=== PATIENT | female | born 1980 | race Caucasian/White ===

== ENCOUNTER 2022-11-18 11:32 | Outpatient (CLI) | payer OTHER, SELFPAY ==
[2022-11-18 11:58] LABS: Hemoglobin 14.1 g/dL (12.0-15.0); Mean Corpuscular HGB Conc 32.8 g/dl (32-36); Mean Corpuscular Hemoglobin 29.2 pg (26-34); Mean Platelet Volume 9.1 fl (7.4-10.4); Platelet Count Result 265 k/mm3 (150-375); Red Blood Count 4.83 M/mm3 (4.2-5.4); Red Cell Distribution Width 11.9 % (11.5-14.5); White Blood Count 5.8 K/mm3 (4.5-10.0)
[2022-11-18 12:13] LABS: Alanine Aminotransferase 21 U/L (6-35); Albumin Level 4.4 g/dL (3.5-5.1); Alkaline Phosphatase 62 U/L (38-126); Anion Gap 7 mmol/L (8-16); Aspartate Amino Transferase 26 U/L (14-36); Bilirubin,Total 0.4 mg/dL (0.2-1.3); Blood Urea Nitrogen 16 mg/dL (7-17); CRP 0.7 mg/dL (<1.0); Carbon Dioxide 28 mmol/L (22-30); Chloride 103 mmol/L (98-107); Estimated Glomerular Filt Rate > 60; Glucose 115 mg/dL (65-110); Lipase 376 U/L (23-300); Potassium 4.2 mmol/L (3.4-5.0); Sodium 138 mmol/L (137-145)
[2022-11-18 12:45] LABS: Hepatitis B Surface Antigen Negative (Negative)
[2022-11-18 12:50] LABS: HIV 1/2 Ab P24 Ag Result Negative (Negative)
[2022-11-18 12:51] LABS: HAV RESULT Negative (Negative); Hepatitis B Core IgM Result Negative (Negative)
[2022-11-18 13:02] LABS: Hepatitis C Virus Antibody Negative (Negative)
[2022-11-18 13:24] LABS: Erythrocyte Sedimentation Rate 12 mm/hr (0-20)
[2022-11-23 01:35] LABS: Tissue Transglutaminase IgA Ab <1.0 U/mL (<15.0); Tissue Transglutaminase IgG Ab <1.0 U/mL (<15.0)
== END 2022-11-18 11:33 | disposition home or self-care (01) ==
PROVIDERS: PCP Internal Medicine; Visit Provider Nurse Practitioner
DX: R93.3 Abnormal findings on diagnostic imaging of other parts of digestive tract (principal); R74.8 Abnormal levels of other serum enzymes
CPT/HCPCS: 36415; 80053; 80074; 83690; 85027; 85652; 86140; 86364; 86703; G0432

== ENCOUNTER 2022-12-07 09:47 | Outpatient (CLI) | payer OTHER, SELFPAY ==
--- NOTE | ~2022-12-07 | US_ITS ---
EXAMINATION: US abdomen limited DATE: 12/07/2022 10:44 INDICATION: hx of biliary dilation-f/u TECHNIQUE: Multiple grayscale and Doppler ultrasound images of limited portions of the abdomen were o btained. COMPARISON: CT abdomen pelvis 01/07/2012. FINDINGS: The visualized portions of the pancreas are normal. The liver is normal with normal echogen icity and echotexture. No surface nodularity. Normal hepatopetal flow in the main portal vein. Status post cholecystectomy. The common bile duct measures 6 mm. There was no sonographic Johnson sign. IMPRESSION: Status post [facility] x-ray. Otherwise normal limited abdominal ultrasound findings. Reviewed, dictated and finalized at location K. IMPRESSION: Status post [facility] x-ray. Otherwise normal limited abdominal ultrasound findings .
== END 2022-12-07 09:48 | disposition home or self-care (01) ==
LOC: ANHIMG 09:50
PROVIDERS: PCP Internal Medicine; Visit Provider Nurse Practitioner
DX: R19.8 Other specified symptoms and signs involving the digestive system and abdomen (principal)
CPT/HCPCS: 76705

== ENCOUNTER 2023-10-10 15:40 | Outpatient (CLI) | payer OTHER, SELFPAY ==
[2023-10-10 16:02] LABS: Hematocrit 40.9 % (37.0-47.0); Hemoglobin 13.8 g/dL (12.0-15.0); Mean Corpuscular HGB Conc 33.7 g/dl (32-36); Mean Corpuscular Hemoglobin 30.1 pg (26-34); Mean Corpuscular Volume 89.1 fl (80-100); Mean Platelet Volume 8.7 fl (7.4-10.4); Platelet Count Result 331 k/mm3 (150-375); Red Blood Count 4.59 M/mm3 (4.2-5.4); Red Cell Distribution Width 11.9 % (11.5-14.5); White Blood Count 9.6 K/mm3 (4.5-10.0)
[2023-10-10 16:17] LABS: Alanine Aminotransferase 22 U/L (6-35); Albumin Level 4.5 g/dL (3.5-5.1); Alkaline Phosphatase 70 U/L (38-126); Anion Gap 11 mmol/L (4-12); Aspartate Amino Transferase 29 U/L (14-36); Bilirubin,Total 0.2 mg/dL (0.2-1.3); Blood Urea Nitrogen 16 mg/dL (7-17); Carbon Dioxide 25 mmol/L (22-30); Chloride 102 mmol/L (98-107); Estimated Glomerular Filt Rate > 60; Glucose 90 mg/dL (65-110); Lipase 433 U/L (23-300); Potassium 3.9 mmol/L (3.4-5.0); Sodium 138 mmol/L (137-145)
== END 2023-10-10 15:41 | disposition home or self-care (01) ==
LOC: ANHLAB 15:42
PROVIDERS: Visit Provider Nurse Practitioner
DX: R74.8 Abnormal levels of other serum enzymes (principal); K58.9 Irritable bowel syndrome, unspecified
CPT/HCPCS: 36415; 80053; 83690; 84443; 85027

== ENCOUNTER 2024-05-20 00:10 | Day surgery (SDC) | payer OTHER, SELFPAY ==
[2024-05-10 14:50] VITALS: BMI 28.3
--- OUTSIDE RECORDS SUMMARY | 2024-05-20 00:14 | XMS_ITS | Referral Summary ---
Author Organization [facility] [address] Address [address] [place] [address] Care Team Providers Care Specifications Checker Name Role Phone Kahlil George MD Primary Care Provider Allergies Active Allergy Reactions Criticality Noted Date Comments Fentanyl Dizziness,Unknown Low 09/20/2013 MAKE PT VERY DROWSY AND FELL PER PT Penicillins Rash,Unknown Medium 11/20/2013 Rash Tramadol Dizziness,Unknown Low 07/20/2017 Medications calcium carbonate (TUMS) 500 mg (200 mg elemental) chewable tablet Take 1 tablet by mouth daily Active cholecalciferol (VITAMIN D-3) 25 mcg (1,000 unit) tablet Take 1 tablet by mouth daily Active cyanocobalamin (Vitamin B-12) 2,000 mcg tablet Take 1 tablet by mouth daily Active collagenase (SANTYL) ointment Apply topically daily Active hydrOXYzine (VISTARIL) 25 mg capsule Take 25 mg by mouth daily as needed Active lamoTRIgine (LaMICtal) 100 mg tablet Take 100 mg by mouth 2 (two) times a day 2 Active norethindrone ethinyl estradiol (MICROGESTIN 1.530) 1.5-30 mg-mcg tablet per tablet Take 1 tablet by mouth daily Active polyethylene glycol (Golytely) 236-22.74-6.74 -5.86 gram solution 4 liters to be taken by mouth as directed for bowel prep. 2 Active sertraline (ZOLOFT) 100 mg tablet Take 100 mg by mouth 2 (two) times a day 2 Active suvorexant (Belsomra) 10 mg tablet Take 10 mg by mouth nightly Active traZODone (DESYREL) 100 mg tablet TAKE 2 TABLETS BY MOUTH AT NIGHT 2 Active ziprasidone (GEODON) 20 mg capsule Take 40 mg by mouth daily 1 Active Active Problems Problem Noted Date Diagnosed Date Conductive hearing loss of l eft ear with unrestricted hearing of right ear 08/27/2021 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 Headache 03/25/2013 Overview (06/10/2016): Medication overuse headache Migraine 03/25/2013 Overview (06/10/2016): Migraine headache Obstructive sleep apnea syndrome 02/18/2013 Overview (06/09/2016): Obstructive sleep apnea syndrome Idiopathic hypersomnia without long sleep time 1 04/21/2012 Overview (06/09/2016): 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, insomnia, or sle eplessness associated with conditioned arousal 02/18/2013 Overview (06/09/2016): Paradoxical insomnia Diffuse pain 11/27/2012 Overview (06/09/2016): Diffuse pain Insomnia 11/27/2012 Overview (06/09/2016): Insomnia Depression 11/27/2012 Overview (06/09/2016): Depression Social History Tobacco Use Types Packs/Day Years Used Date Smoking Tobacco: Never Smokeless Tobacco: Never Alcohol Use Standard Drinks/Week Comments No 0 (1 standard drink = 0.6 oz pur e alcohol) Comments Unknown Sex and Gender Information Value Date Recorded Sex Assigned at Not on file Legal Sex Female 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 Care Teams Specifications Checker Relationship Specialty [place] [address] [place] [address] [facility] - General 09/10/13
--- OUTSIDE RECORDS SUMMARY | 2024-05-20 00:14 | XMS_ITS ---
Author Organization [facility] Address [address] [place] [address] Care Team Providers Care Instructional Paraprofessional Name Role Phone Jamaal Peters Primary Care Provider REASON FOR VISIT appt/refills Medications Medication SIG (Take, Route, Frequency, Duration) Notes Start Date End Date Status buPROPion HCl ER (XL) 150 MG Take 1 tablet by mouth once daily for 30 days Active lamoTRIgine 25 MG TAKE 1 TABLET BY HUAN TH TWICE DAILY WITH 100MG TAB FOR A TOTAL OF 125MG TWICE DAILY for 30 days Active Ziprasidone HCl 80 MG TAKE 2 CAPSULES BY MOUTH AT NIGHT for 30 days Active LaMICtal 100 MG 1 tablet Orally twic e a day for 30 days Active traZODone HCl 150 MG 1 tablet at bedtime Orally at night for 30 days Active Sertraline HCl 100 MG 1 tablet Orally tw ice a day for 30 days Active Social History Sex Assigned At : Social History Observation Description Sex Assigned At Female Encounters Encounter Location Date Provider Diagnosis [address] [address] 03/26/2024 Jamaal Peters Bipolar disorder F31.9 Assessments Encounter Date Diagnosis (ICD Code) Assessment Notes Treatment Notes Treatment Clinical Notes Section Notes 03/26/2024 Bipolar disorder (ICD-10 - F31.9) Plan Of Treatment Medication Medication Name Sig Start Date Stop Date Notes buPROPion HCl ER (XL) 150 MG Take 1 tabl et by mouth once daily for 30 days lamoTRIgine 25 MG TAKE 1 TABLET BY HUAN TH TWICE DAILY WITH 100MG TAB FOR A TOTAL OF 125MG TWICE DAILY for 30 days Ziprasidone HCl 80 MG TAKE 2 CAPSULES BY MOUTH AT NIGHT for 30 days LaMICtal 100 MG 1 tablet Orally twic e a day for 30 days traZODone HCl 150 MG 1 tablet at bedtime Orally at night for 30 days Sertraline HCl 100 MG 1 tablet Orally tw ice a day for 30 days Progress Notes * Christopher SANDHUJoseB:1980 (43 yo F)Acc No.[id number]:03/26/2024 Patient: Aliza JACOBSON :1980 A ge:43 Y S ex:Female Address:[address] [place] [address], [address], [place], [address] * Refills Refill Sertraline HCl Tablet, 100 MG, Orally, 60 Tablet, 1 tablet, twice a day, 30 days, Refills=0 Refill traZODone HCl Tablet, 150 MG, Orally, 30, 1 tablet at bedtime, at night, 30 days, Refills=0 Refill LaMICtal Tablet, 100 MG, Orally, 60, 1 tablet, twice a day, 30 days, Refills=0 Refill Ziprasidone HCl Capsule, 80 MG, 60, TAKE 2 CAPSULES BY MOUTH AT NIGHT, 30 days, Refills=0 Refill lamoTRIgine Tablet, 25 MG, 60, TAKE 1 TABLET BY MOUTH TWICE DAILY WITH 100MG TAB FOR A TOTAL OF 125MG TWICE DAILY, 30 days, Refills=0 Refill buPROPion HCl ER (XL) Tablet Extended Release 24 Hour, 150 MG, 30 Tablet, Take 1 tablet by mouth once daily, 30 days, Refills=0 * true * Date: Generated for Janeth hayden/Ruchi/Lena on: 0 05/20/2024 12:13 AM CDT
--- OUTSIDE RECORDS SUMMARY | 2024-05-20 00:14 | XMS_ITS ---
Author Organization [facility] Address [address] [place] [address] Care Team Providers Care Quarter Section Ironer Name Role Phone Jamaal Peters Primary Care Provider REASON FOR VISIT Refill Social History Sex Assigned At : Social History Observation Description Sex Assigned At Female Encounters Encounter Location Date Provider Diagnosis [address] [place] [address] 03/26/2024 Jamaal Peters Plan Of Treatment No Information Progress Notes * PHOEBEChristopherJoseB:1980 (43 yo F)Acc No.[id number]:03/26/2024 Patient: Aliza JACOBSON :1980 A ge:43 Y S ex:Female Address:[address], [address], [place], [address] * true * Date: Generated for Johnnyi ng/Fajessikag/eTransmitting on: 0 05/20/2024 12:14 AM CDT
--- OUTSIDE RECORDS SUMMARY | 2024-05-20 00:14 | XMS_ITS | Encounter Summary ---
Author Organization [facility] Address [address] [place] [address] Care Team Providers Care School Office Manager Name Role Phone Janet Alejandra APRN Primary Care Provider [phone] Encounter Details Date Type Department Care Team (Late st Contact Info) Description 10/25/2022 [employer] Security Message Enc [facility] Family & Internal Medicine [facility] [address] [place] [address] Janet Alejandra APRN [address] [facility] [address] [place] [address] Test results Social History Tobacco Use Types Packs/Day Years Used Date Smoking Tobacco: Never Smokeless Tobacco: Never Alcohol Use Standard Drinks/Week Comments Yes 0 (1 standard drink = 0.6 oz pure alcohol) Pt states 1/wine every 3 months or so Humiliation, Afraid, Rape, and Kick questionnair e Answer Date Recorded Within the last year, have y ou been afraid of your partner or ex-partner? No 07/28/2022 Within the last year, have y ou been humiliated or emotionally abused in other ways by your partner or ex-partner? No Within the last year, have y ou been kicked, hit, slapped, or otherwise physically hurt by your partner or ex-partner? No 07/28/2022 Within the last year, have y ou been raped or forced to have any kind of sexual activity by your partner or ex-partner? No 07/28/2022 Overall Financial Resource Strain (CARDIA) Answe r Date Recorded How hard is it for you to pa y for the very basics like food, housing, medical care, and heating? Not very hard 07/28/2022 PHQ-2 Answer Date Recorded Patient Health Questionnaire-2 Score 0 10/17/2022 Hunger Vital Sign Answer Date Recorded Within the past 12 months, y ou worried that your food would run out before you got the money to buy more. Never true 07/29/19 23 Within the past 12 months, t he food you bought just didn't last and you didn't have money to get more. Never true 07/28/2022 PRAPARE - Transportation Answer Date Re corded In the past 12 months, has l ack of transportation kept you from medical appointments or from getting medications? No 07/05 In the past 12 months, has l ack of transportation kept you from meetings, work, or from getting things needed for daily living? No 07/28/2022 Housing Stability Vital Sign Answer Jovi e Recorded In the last 12 months, was t here a time when you were not able to pay the mortgage or rent on time? No 07/28/2022 In the last 12 months, how many places have you lived? 1 07/28/2022 In the last 12 months, was t here a time when you did not have a steady place to sleep or slept in a assisted (including now)? 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 Answer Date of Assessment Author Status No 07/28/2022 5:52 PM CDT Falbe, Meg E, RN Active * Do you have serious difficulty walking or climbing stairs? Answer Date of Assessment Author Status No 07/28/2022 5:52 PM CDT Meg Mariano RN Active * Do you have difficulty dressing or bathing? Answer Date of Assessment Author Status No 07/28/2022 5:52 PM CDT Meg Mariano RN Active * Because of a physical, mental, or emotional condition, do you have difficulty doing errands alone such as visiting a doctor's office or shopping? Answer Date of Assessment Author Status No 07/28/2022 5:52 PM CDT Meg Mariano RN Active documented as of this encounter Mental Status * Because of a physical, mental, or emotional condition, do you have serious difficulty concentrating, remembering, or making decisions? Answer Entry Date Author Status No 07/28/2022 5:52 PM CDT Meg Mariano RN Active documented in this encounter Plan of Treatment Not on file documented as of this encounter Visit Diagnoses Not on filedocumented in this encounter Additional Health Concerns Infection Onset Date Last Indicated Resolved Time COVID-19 Rule Out 02/16/2024 02/16/2024 02/16/2024 10:09 AM STRUCTURAL STEEL DETAILER Assessment Noted Time PHQ-9 Depression Total Score: 0 12/25/19 22 9:23 AM CDT documented as of this encounter Care Teams School Office Manager Relationship Specialty Start Date End Date Janet Alejandra APRN [address] [address] PCP - General NURSE PRACTITIONER 06/10/22 documented as of this encounter
--- OUTSIDE RECORDS SUMMARY | 2024-05-20 00:14 | XMS_ITS | Clinical Summary ---
Author Organization [facility] Address [address] [place] [address] Care Team Providers Care Spark Plug Assembler Name Role Phone Nettie George MD Primary Care Provider [phone] Source Comments [facility],non-owned Affiliates and Associated Physician Practices is amultiple site organization consisting of ambulatory clinics and hospital sitesin [place], [place] and [place]. This disclosure is being madepursuant to the Care Everywhere program and may not contain all information available regarding this patient. Last updated 17.[facility] Allergies Active Allergy Reactions Criticality Noted Date Comments Fentanyl Dizziness 07/20/2017 Penicillins Unknown 07/20/2017 Tramadol Unknown 07/20/2017 Medications * Be aware that medications may not be up to date on this document. Alwaysverify current medications with the patient. Medication Sig Dispensed Refills Start Date End Date Status sertraline (ZOLOFT) 100 MG tablet Take 200 mg by mouth once daily Active hydrOXYzine pamoate (VISTARIL) 25 MG capsule Take 25 mg by mouth once daily as needed for Anxiety Active trolamine salicylate (MYOFLEX) 10 % cream Apply to affected area as needed for Pain Active traZODone (DESYREL) 100 MG tabletIndications:A nxiety Disorder Take 1 tablet by mouth at bedtime Reasons: Anxiety Disorder 30 tablet 1 07/24/2017 Active ziprasidone (GEODON) 20 MG capsuleIndications: Major Depressive Disorder Take 1 capsule by mouth 3 times daily Reasons: Major Depressive Disorder 90 capsule 07/24/2017 Active Active Problems Problem Noted Date Diagnosed Date Major depressive disorder, r ecurrent, severe without psychotic features 07/20/2017 Social History Tobacco Use Types Packs/Day Years Used Date Smoking Tobacco: Never Smokeless Tobacco: Never Alcohol Use Standard Drinks/Week Comments Yes 0 (1 standard drink = 0.6 oz pure alcohol) occasional glass of wine every 6 months Sex and Gender Information Value Date Recorded Sex Assigned at Not on file Gender Identity Not on file Sexual Orientation Not on file Last Filed Vital Signs Vital Sign Reading Time Taken Comments Blood Pressure 96/65 07/24/2017 7:25 AM CDT Pulse 86 07/24/2017 7:25 AM CDT Temperature 37 C (98.6 F) 07/24/2017 7:25 AM CDT Respiratory Rate 14 07/24/2017 7:25 AM CDT Oxygen Saturation 97% 07/24/2017 7:25 AM CDT Inhaled Oxygen Concentration - - Weight 81.6 kg (180 lb) 07/20/2017 2:52 PM CDT Height 157.5 cm (5' 2 ) 07/20/2017 2:52 PM CDT Body Mass Index 32.92 07/20/2017 2:52 PM CDT Plan of Treatment Health Maintenance Due Date Last Done Comments MAMMOGRAM 1980 PAP SMEAR 1980 HIV SCREENING 1997 HEPATITIS C SCREENING 06/27/2000 DTAP/TDAP/TD VACCINES (1 - Tdap) 2001 HEPATITIS B VACCINE (1 of 3 - 19+ 3-dose series) 2001 LIPID TESTING 07/24/2022 07/24/2017 COVID-19 VACCINE (1 - 2023-2 5 season) 2023 INFLUENZA VACCINE (#1) 2023 DEPRESSION SCREENING 03/06/2024 ZOSTER VACCINE (1 of 2) 2032 HIB VACCINE Aged Out No longer eligi ble based on patient's age to complete this topic HPV VACCINE Aged Out No longer eligi ble based on patient's age to complete this topic MENINGOCOCCAL (Group B) VACC INE SHARED DECISION-MAKING Aged Out No longer eligibl e based on patient's age to complete this topic MENINGOCOCCAL GROUPS A/C/Y/W VACCINE Aged Out No longer eligible b ased on patient's age to complete this topic PNEUMOCOCCAL VACCINE Aged Out No long er eligible based on patient's age to complete this topic Procedures Procedure Name Priority Date/Time Associated Diagnosis Comments LIPID PROFILE Routine 07/24/2017 6:15 AM CDT from Last 3 Months or Most Recently Relevant to Health Maintenance Results * (ABNORMAL) LIPID PROFILE (07/24/2017 6:15 AM CDT) Cholesterol 245(H) <200 mg/dL 07/24/2017 6:49 AM CDT [facility] Triglycerides 335(H) <150 mg/dL 07/24/2017 6:49 AM CDT [facility] HDL Cholesterol 39(L) >40 mg/dL 8 6:49 AM CDT [facility] Chol HDL Ratio 6.3(H) 1.0 - 6.0 07/24/2017 6:49 AM T [facility] LDL Calculated 139(H) 65 - 130 mg/dL 07/24/2017 6:49 AM T [facility] VLDL Calculated 67(H) 10 - 40 mg/dL 07/24/2017 6:49 AM T [facility] Blood BLOOD SPECIMEN / Unknown Lab Venipuncture / Unknown 07/24/2017 6:15 AM CDT 07/24/2017 6:15 AM CDT [facility] - 07/24/2017 6:49 AM CDT Lipid Profile Comment: CHOLESTEROL LEVEL..................CLINICAL INTERPRETATION LESS THAN 200 MG/DL..............................DESIRABLE 200-239 MG/DL..............................BORDERLINE HIGH GREATER THAN 240 MG/DL................................HIGH LDL-CHOLESTEROL LEVEL..............CLINICAL INTERPRETATION LESS THAN 100 MG/DL................................OPTIMAL 100-129 MG/DL.................................NEAR OPTIMAL GREATER THAN 160 MG/DL...........................HIGH RISK HDL RISK LEVEL GREATER THEN 60 MG/DL............................DECREASED 40-60 MG/DL........................................AVERAGE LESS THAN 40 MG/DL...............................INCREASED TRIGLYCERIDE LEVEL..................CLINICAL INTERPRETATION LESS THAN 150 MG/DL...............................DESIRABLE 150-199 MG/DL...............................BORDERLINE HIGH 200-499 MG/DL..........................................HIGH GREATER THAN 500..................................VERY HIGH THE NATIONAL CHOLESTEROL EDUCATION PROGRAM HAS SET THE ABOVE GUIDELINES (REFERANCE VALUES) FOR CHOLESTEROL AND HDL. RISK ASSOCIATED WITH CHOLESTEROL/HDL RATIOS RISK....................MALE RATIO.............FEMALE RATIO 1/2 AVERAGE.................<3.4.......................<3.3 LOW RISK.................... 4.0 ...................... 3.8 AVERAGE..................... 5.0 ...................... 4.5 2X AVERAGE.................. 9.5 ...................... 7.0 3X AVERAGE...................>23........................>11 Arabella Cabrales MD LAB - CHEMISTRY LOREN FANG [facility] [address] [place] [address], [facility] from Last 3 Months or Most Recently Relevant to Health Maintenance Advance Directives * Full Code (Latest Code Status on File) Date Activated Date Inactivated Comments 07/20/2017 2:30 PM 07/24/2017 1:47 PM Care Teams Spark Plug Assembler Relationship Specialty Start Date End Date Nettie George MD PCP - General Internal Medicine 07/20/17
--- OUTSIDE RECORDS SUMMARY | 2024-05-20 00:14 | XMS_ITS | Patient Health Summary ---
Author Organization [facility] Address [address] [place] [address] Care Team Providers Care Management Specialist Name Role Phone Nettie George MD Primary Care Provider [phone] Note from [facility],non-owned Affiliates and Associated Physician Practices is amultiple site organization consisting of ambulatory clinics and hospital sitesin [place], [place], [place] and [place]. This disclosure is being madepursuant to the Care Everywhere program and may not contain all information available regarding this patient. Last updated 17.[facility] Allergies * Fentanyl(Dizziness) * Penicillins(Unknown) * Tramadol(Unknown) * Trazodone(Dizziness),Inactive Medications * Be aware that medications may not be up to date on this document. Alwaysverify current medications with the patient. * sertraline (ZOLOFT) 100 MG tablet Take 200 mg by mouth once daily * hydrOXYzine pamoate (VISTARIL) 25 MG capsule Take 25 mg by mouth once daily as needed for Anxiety * trolamine salicylate (MYOFLEX) 10 % cream Apply to affected area as needed for Pain * traZODone (DESYREL) 100 MG tablet(Started 07/24/2017) Take 1 tablet by mouth at bedtime Reasons: Anxiety Disorder 1 refill remaining * ziprasidone (GEODON) 20 MG capsule(Started 07/24/2017) Take 1 capsule by mouth 3 times daily Reasons: Major Depressive Disorder Active Problems Problem Noted Date Diagnosed Date [...] Mass Index 32.92 07/20/2017 2:52 PM CDT Procedures * LIPID PROFILE(Performed 07/24/2017) * EKG 12-LEAD(Performed 07/23/2017) Performed for Major depressive disorder, recurrent, severe without psychotic features (HCC) Results * (ABNORMAL) LIPID PROFILE (07/24/2017 6:15 AM CDT) [facility] Cholesterol 245(H) <200 mg/dL 07/24/2017 6:[address] [facility] Triglycerides 335(H) <150 mg/dL 07/24/2017 6:[address] [facility] HDL Cholesterol 39(L) >40 mg/dL 8 6:[address] [facility] Chol HDL Ratio 6.3(H) 1.0 - 6.0 07/24/2017 6:[address] [facility] LDL Calculated 139(H) 65 - 130 mg/dL 07/24/2017 6:[address] [facility] VLDL Calculated 67(H) 10 - 40 mg/dL 07/24/2017 6:[address] [facility] Blood BLOOD SPECIMEN / Unknown Lab Venipuncture / Unknown 07/24/2017 6:15 AM CDT 07/24/2017 6:[address] [facility] - 07/24/2017 6:49 AM CDT Lipid [...] Cabrales MD LAB - CHEMISTRY LOREN FANG Performing Organization Address City/State/[facility] Co de Phone Number [facility] [address] * EKG 12-LEAD (07/23/2017 8:20 AM CDT) Ventricular Rate 81 BPM [facility] Atrial Rate 81 BPM [facility] P-R Interval 158 ms [facility] QRS Duration ms 80 ms [facility] Q-T Interval ms 378 ms [facility] QTC Calculation (Bezet) 439 ms [facility] Calculated P [place] 59 degrees [facility] Calculated R [place] 36 degrees [facility] Calculated T [place] 47 degrees [facility] Interpretation EKG NORMAL SINUS RHYTHM NORMAL ECG NO PREVIOUS ECGS AVAILABLE DR BRADY READ THIS EKG ON 07/23/17 Confirmed by ANDREW BRADY MD ([id number]), sound editor GEORGE DELACRUZ ([id number]) on 07/25/2017 6:44:[address] [facility] 07/23/2017 8:20 AM CDT 07/25/2017 6:44 PM CDT Arabella Cabrales MD ECG ORDERABLES [facility] Care Teams Management Specialist Relationship Specialty Start Date End Date Nettie George MD PCP - General Internal Medicine 07/20/17
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
--- OUTSIDE RECORDS SUMMARY | 2024-05-20 00:14 | XMS_ITS | Referral Summary ---
Author Organization [facility] Address [address] [place] [address] Care Team Providers Care Farm Equipment Mechanic Apprentice Name Role Phone Nettie George MD Primary Care Provider [phone] Source Comments [facility],non-owned Affiliates and Associated Physician Practices is amultiple site organization consisting of ambulatory clinics and hospital sitesin [place], [place], [place] and [place]. This disclosure is being madepursuant to the Care Everywhere program and may not contain all information available regarding this patient. Last updated 17.[facility] Allergies Active Allergy Reactions Criticality Noted Date [...] Mass Index 32.92 07/20/2017 2:52 PM CDT Functional Status Functional Status Response Date of Assess ment Is person deaf or have serious hearing difficult y? No 07/24/2017 Is person blind or have serious difficulty seein g? No 07/24/2017 Does person have serious dif ficulty walking/climbing stairs? No 07/24/2017 Does person have difficulty dressing/bathing? No 07/24/2017 Does person have difficulty doing errands alone? No 07/24/2017 Cognitive Status Response Date of Assessm ent Does person have difficulty concentrating/remembering/making decisions? No 07/24/2017 Plan of Treatment Not on file Procedures Procedure Name Priority Date/Time Associated Diagnosis Comments LIPID PROFILE Routine 07/24/2017 6:15 AM CDT from Last 3 Months or Most Recently Relevant to Health Maintenance Results * (ABNORMAL) LIPID PROFILE (07/24/2017 6:15 AM CDT) [facility] Cholesterol 245(H) <200 mg/dL 07/24/2017 6:49 AM CDT [facility] Triglycerides 335(H) <150 mg/dL 07/24/2017 6:49 AM CDT [facility] HDL Cholesterol 39(L) >40 mg/dL 8 6:49 AM CDT [facility] Chol HDL Ratio 6.3(H) 1.0 - 6.0 07/24/2017 6:49 AM T [facility] LDL Calculated 139(H) 65 - 130 mg/dL 07/24/2017 6:49 AM T [facility] VLDL Calculated 67(H) 10 - 40 mg/dL 07/24/2017 6:49 AM T [facility] Blood BLOOD SPECIMEN / Unknown Lab Venipuncture / Unknown 07/24/2017 6:15 AM CDT 07/24/2017 6:15 AM CDT Narrative [facility] - 07/24/2017 6:49 AM CDT Lipid [...] Cabrales MD LAB - CHEMISTRY LOREN FANG [facility] [address] [place] [address], [facility] from Last 3 Months or Most Recently Relevant to Health Maintenance Advance Directives * Full Code (Latest Code Status on File) Date Activated Date Inactivated Comments 07/20/2017 2:30 PM 07/24/2017 1:47 PM Care Teams Farm Equipment Mechanic Apprentice Relationship Specialty Start Date End Date Nettie George MD PCP - General Internal Medicine 07/20/17
--- OUTSIDE RECORDS SUMMARY | 2024-05-20 00:14 | XMS_ITS ---
Author Name [facility] Address [address] [place] [address] Phone Organization [facility] Address [address] [place] [address] Phone Care Team Providers Care Vapor Coater Name Role Phone [facility] [phone] ALLERGIES, ADVERSE REACTIONS AND ALERTS Allergy Name Allergy Date Allergy Status Allergy Severity Allergy Reaction Tramadol, [RxNorm: 42858] 07/05/2023 Current Fentanyl, [RxNorm: 4337] 07/05/2023 Current PROBLEMS Problem None PROCEDURES Procedure Description Date Notes NO PROCEDURES PERFORMED ASSESSMENTS Assessment None PLAN OF TREATMENT Assessment Planned Activity LOINC Planned Jovi e None CONSULTATION NOTE Note Author Date None HISTORY AND PHYSICAL NOTE Note Author Date None PROGRESS NOTE Note Author Date None DISCHARGE SUMMARY Note Author Date None CHIEF COMPLAINT AND REASON FOR VISIT FUNCTIONAL STATUS Functional or Cognitive Find ing None MENTAL STATUS Cognitive Finding None ENCOUNTERS Encounter Type Provider Diagnoses Start Date Location None SOCIAL HISTORY Social Status Observation Unknown if ever smoked Sex:Female CARE TEAM INFORMATION Vapor Coater Provider ID Role Location Phone [facility] [address] [place] [address]
--- OUTSIDE RECORDS SUMMARY | 2024-05-20 00:14 | XMS_ITS | Encounter Summary ---
Author Organization [facility] Address [address] [place], [place] [id number] Care Team Providers Care Briquette Molder Name Role Phone Janet Alejandra APRN Primary Care Provider [phone] Reason for Visit * Reason Onset Date Comments Concerns 04/15/2024 Encounter Details Date Type Department Care Team (Late st Contact Info) Description 04/15/2024 Appbistro Message Deligic [facility] Family & Internal Medicine [address] [address] [employer], [facility] Provider results Social History Tobacco Use Types Packs/Day Years Used Date Smoking Tobacco: Never Passive Smoke Exposure: Current Smokeless Tobacco: Never Alcohol Use Standard Drinks/Week Comments Not Currently 0 (1 standard drink = 0.6 oz pur e alcohol) Humiliation, Afraid, Rape, and Kick questionnair e [...] Date Recorded Patient Health Questionnaire-2 Score 0 04/15/2024 Hunger Vital Sign Answer Date Recorded Within [...] place to sleep or slept in a jail (including now)? No 07/28/2022 Comments No Sex and Gender Information Value Date Recorded Sex Assigned at Female 04/15/2024 8:39 AM DETAIL SERGEANT Legal Sex Female 10:18 PM CDT Gender Identity Female 04/15/2024 8:39 AM DETAIL SERGEANT Sexual Orientation Straight 04/15/2024 8: 39 AM DETAIL SERGEANT Occupation Industry Job Start Date Job End [...] Mariano RN Active * Do you have serious [...] Mariano RN Active documented in this encounter Progress Notes * Ирина Almanzar RN - 04/16/2024 1:40 PM CST Left message for patient to go to the ER per Dr Osborn's office visit note from yesterday. [place] SERGEANT * Ghanshyam Russell - 04/16/2024 12:18 PM CST Pt calling is in a lot of pain please advise. [place] SERGEANT documented in this encounter Plan of Treatment Not on file documented as of this encounter Visit Diagnoses Not on filedocumented in this encounter Additional Health Concerns Assessment Noted Time PHQ-9 Depression Total Score: 3 04/15/19 25 8:36 AM DETAIL SERGEANT documented as of this encounter Care Teams Briquette Molder Relationship Specialty Start Date End Date Janet Alejandra APRN [address] [facility] [address] [place] [address] PCP - General NURSE PRACTITIONER 06/10/22 documented as of this encounter
--- OUTSIDE RECORDS SUMMARY | 2024-05-20 00:14 | XMS_ITS | Clinical Summary ---
Author Organization [facility] [address] Address [address] [place] [address] Care Team Providers Care Stock Sheets Cleaner Inspector Name Role Phone Kahlil George MD Primary [...] (06/09/2016): Insomnia Depression 11/27/2012 Overview (06/09/2016): Depression Surgical History Surgery Date Site/Laterality Comments EAR SURGERY CHOLECYSTECTOMY Medical History Medical History Date Comments Allergic rhinitis Anxiety Depression Family History Medical History Relation Name Comments Cancer Father Cancer; Diabetes Father Diabetes mellit us; Hypertension Father Hypertension; Migraines Father Migraine; Cancer Mother Cancer; Migraines Mother Migraine; Migraines Other Family history of Migraine; Relation Name Status Comments Father Mother Other Social History Tobacco Use Types Packs/Day Years Used Date Smoking Tobacco: Never Smokeless Tobacco: Never Alcohol Use Standard Drinks/Week Comments No 0 (1 standard drink = 0.6 oz pur e alcohol) Comments Unknown Sex and Gender Information Value Date Recorded Sex Assigned at Not on file Legal Sex Female 11:13 AM TYPE MAPPER Gender Identity Not on file Sexual Orientation Not on file Obstetrics History Last Filed Vital Signs Vital Sign Reading [...] 08/26/2021 9:36 AM CDT Plan of Treatment Health Maintenance Due Date Last Done Comments Breast Cancer Screening-Mammogram 1982 Cervical Cancer Screening 1982 Depression Screening 1982 Hepatitis C Screening 1982 Varicella Vaccines (1 of 2 - 13+ 2-dose series) 07/03/1995 Hepatitis B Screening 2000 Regular Well Visit/Exam 18-64 2000 DTaP/Tdap/Td Vaccine (1 - Tdap) 10/09/2018 10/08/2018 Covid-19 Vaccine (4 - 2023-2 5 season) 2023 08/17/2021, 12/15/2020, 11/24/2020 Influenza Vaccine (#1) 2023 HPV Vaccines Aged Out No longer eligi ble based on patient's age to complete this topic Pneumococcal vaccine <65 Aged Out No longer eligible based on patient's age to complete this topic Insurance [address] [place] [address] [facility] Care Teams Stock Sheets Cleaner Inspector Relationship Specialty [place] [address] [place] [address] PCP - General 09/10/13
--- OUTSIDE RECORDS SUMMARY | 2024-05-20 00:14 | XMS_ITS | Clinical Summary ---
Author Organization [facility] Address [address] [place] [address] Care Team Providers Care Bicycle Repairer Name Role Phone Janet Alejandra APRN Primary Care Provider [phone] Allergies Active Allergy Reactions Criticality Noted Date Comments Fentanyl Dizziness Low 09/20/2013 Tramadol Dizziness Low 07/20/2017 Medications sertraline 100 MG tablet Take 1 tablet (100 mg total) by mouth 2 (two) times a day. 5 Active lamoTRIgine 100 MG tablet Take 1 tablet (100 mg total) by mouth 2 (two) times daily. 1 Active lamoTRIgine 25 MG tablet Take 1 tablet (25 mg total) by mouth 2 (two) times daily. for 30 days 1 Active Suvorexant (BELSOMRA) 10 MG Tab Take 10 mg by mouth nightly. Active ziprasidone 80 MG capsule 2 capsules (160 mg total). 160mg nightly 2 Active vitamin D3, cholecalciferol, 1000 UNIT Tab tablet Take 1 tablet (25 mcg total) by mouth daily. Active Norethindrone Acet-Ethinyl Est 1.5-30 MG-MCG tablet Take 1 tablet by mouth daily. Active Cholecalciferol (VITAMIN D3) 20 MCG (800 UNIT) TabIndications:C hronic fatigue Take 1 tablet by mouth daily. 30 tablet 3 Active omeprazole (PRILOSEC) 40 MG capsule Take 1 capsule (40 mg total) by mouth daily. 3 Active traZODone (DESYREL) 150 MG tablet Take 1 tablet (150 mg total) by mouth nightly at bedtime. 4 Active buPROPion XL (WELLBUTRIN XL) 150 MG 24 hr tablet Take 1 tablet (150 mg total) by mouth every morning. 4 Active metroNIDAZOLE (METROGEL) 0.75 % vaginal gel Place vaginally 2 (two) times daily. 4 Active terconazole (TERAZOL 3) 0.8 % vaginal cream Place 1 applicator vaginally nightly at bedtime. 4 Active gabapentin (NEURONTIN) 100 MG capsuleIndicatio ns:Fibromyalgia TAKE 1 CAPSULE BY MOUTH IN THE MORNING AND 3 NIGHTLY 120 capsule 2 4 Active Additional Information Patient not taking.Reported on 04/15/2024 meloxicam (MOBIC) 15 MG tabletIndication s:Arthralgia, unspecified joint Take 1 tablet by mouth once daily 90 tablet 1 4 Active ubrogepant (UBRELVY) 100 MG tabletIndication s:Other migraine without status migrainosus, not intractable Take 1 tablet (100 mg total) by mouth 2 (two) times daily as needed for Migraine. Max of 2 tablets (200 mg) in 24 hours 8 tablet 4 Active Active Problems Problem Noted Date Diagnosed Date Pancreatitis ([facility]) 07/28/2022 Epigastric pain 04/29/2022 Overview (04/29/2022): Added automatically from request for surgery [id number] Conductive hearing loss of l eft ear with unrestricted hearing of right ear 08/27/2021 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 Colon cancer screening 07/19/2021 Overview (07/19/2021): Added automatically from request for surgery [id number] Neck and shoulder pain 05/01/2020 Abnormal glucose 06/27/2019 Fibromyalgia 10/15/2018 Chronic interstitial cystitis 12/30/2015 Chronic pain syndrome 09/23/2015 IBS (irritable bowel syndrome) 04/06/2015 Chronic fatigue syndrome 08/27/2014 Sleep disorder 08/27/2014 Tachycardia 05/12/2014 Back pain, thoracic 04/02/2014 OCD (obsessive compulsive disorder) 04/02/2014 Overview (03/29/2018): Annotation - 02Apr2014: Dr Sabra Calvillo Psychiatrist Hand weakness 01/08/2014 Arthralgia of both hands 12/11/2013 Overview (03/29/2018): Annotation - [id number]: L hand worse than R, thumb pain worse, better with imobilizer Severe recurrent major depression ([facility] HHS/H CC) 11/26/2013 Migraine, unspecified, not i ntractable, without status migrainosus 05/10/2013 Generalized anxiety disorder 05/07/2013 Headache 03/25/2013 Overview (05/01/2020): Overview: Medication overuse headache Medication overuse headache Hyposomnia, insomnia, or sle eplessness associated with conditioned arousal 02/18/2013 Overview (05/01/2020): Overview: Paradoxical insomnia Paradoxical insomnia Insomnia 11/27/2012 Overview (05/01/2020): Insomnia Diffuse pain 11/27/2012 Overview (05/01/2020): Overview: Diffuse pain Diffuse pain Muscle weakness (generalized) 10/15/2012 Anxiety 10/01/2012 Depression 10/01/2012 Overview (05/01/2020): Depression Fatigue 10/01/2012 Muscular aches 10/01/2012 Hx of adenomatous colonic polyps Resolved Problems Problem Noted Date Diagnosed Date Resolved Date Breast cancer screening 06/27/201911/04 Vaginal bleeding 06/27/2019 10/17/2022 Memory loss 11/04/2014 10/17/2022 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 02/18/2013 10/17/2022 Overview (05/01/2020): Overview: Idiopathic hypersomnia without long sleep time Idiopathic hypersomnia without long sleep time Obstructive sleep apnea syndrome 02/18/2013 10/17/2022 Overview (05/01/2020): Overview: Obstructive sleep apnea syndrome Obstructive sleep apnea syndrome Encounters Date Type Department Care Team Description 04/24/2024 11:58 AM PRODUCE LABORER - 04/24/2024 11:59 PM PRODUCE LABORER Hospital Encounter [facility] [address] [place] [address] Kimberlyn Cain APNP Discharge Disposition: Home or Self Care (Routine Discharge) 04/24/2024 Orders Only [facility] [address] [place] [address] Kimberlyn Cain APNP 04/24/2024 Travel 04/18/2024 Telephone [facility] Family Internal [address] [phone] Janet Alejandra APRN Other (Request fax records ) 04/16/2024 Zalando Message Enc [facility] Internal [address] [phone] Hor[facility] Provider results 04/15/2024 9:20 AM PRODUCE LABORER Laboratory Only [facility] Internal [address] [phone] Janet Alejandra APRN 04/15/2024 8:20 AM PRODUCE LABORER Office Visit [facility] Internal [address] [phone] José Osborn MD Abdominal Pain (Acute abd pain burning stomach OTC not working can't eat lost 4 lbs has a gastrologist at [facility] seen on 04/08/24 did not have these s/s / wanting labs ) 04/15/2024 Horacio Message Enc [facility] Family & Internal Medicine [address] [phone] [facility] Provider results 04/15/2024 Travel from Last 3 Months Immunizations Name Administration Dates Next Due Fluzone 6 Months+ Quad (0.5 mL Prefilled Syringe) 05/19/2020(Deferred: Immunocompromised - Per Patient declined due to autoimmune disease) PFIZER COVID-19 (GALICIA CAP), MRNA, LNP-S, PF, 30 MCG/0.3 ML OLIVIA-SUCROSE, IM 08/17/2021 PFIZER COVID-19 (ORIGINAL FORMULATION, PURPLE CAP) mRNA, LNP-S, PF, 30 MCG/0.3 ML DOSE 12/15/2020,11/24/2020 Td (Tenivac) preservative free 10/08/2018 Family History Medical History Relation Comments Stroke Brother Lung Cancer Father Dementia Mother None Mother Cancer Paternal Grandfather Diabetes Paternal Grandfather Arthritis Paternal Grandmother Diabetes Paternal Grandmother Diabetes Sister Relation Status Comments Brother Father Mother Alive Pt is unsure of history for mom Paternal Grandfather Paternal Grandmother Sister Social History Tobacco Use Types Packs/Day Years Used Date Smoking Tobacco: Never Passive Smoke Exposure: Current Smokeless Tobacco: Never Tobacco Cessation:Counseling Given: No Alcohol Use Standard Drinks/Week Comments Not Currently [...] place to sleep or slept in a senior living (including now)? No 07/28/2022 Comments No Sex and Gender Information Value Date Recorded Sex Assigned at Female 04/15/2024 8:39 AM PRODUCE LABORER Legal Sex Female 10:18 PM CDT Gender Identity Female 04/15/2024 8:39 AM PRODUCE LABORER Sexual Orientation Straight 04/15/2024 8: 39 AM PRODUCE LABORER Occupation Industry Job Start Date Job End Date Not on file Not on file Not on file Not on file Last Filed Vital Signs Vital Sign Reading Time Taken Comments Blood Pressure 134/76 04/15/2024 8:26 AM PRODUCE LABORER Pulse 89 04/15/2024 8:26 AM PRODUCE LABORER Temperature 36.2 C (97.1 F) 04/15/2024 8:26 AM PRODUCE LABORER Respiratory Rate 16 04/15/2024 8:26 AM PRODUCE LABORER Oxygen Saturation 98% 04/15/2024 8:26 AM PRODUCE LABORER Inhaled Oxygen Concentration - - Weight 69.3 kg (152 lb 12.8 oz) 04/15/2024 8:26 AM PRODUCE LABORER Height 157.5 cm (5' 2 ) 04/15/2024 8:26 AM PRODUCE LABORER Body Mass Index 27.95 04/15/2024 8:26 AM PRODUCE LABORER Plan of Treatment Health Maintenance Due Date Last Done Comments Cervical Cancer Screening Pa p Smear (Age 30 to 64) Every 3 Years 1982 Hepatitis B Vaccines (1 of 3 - 19+ 3-dose series) 2001 Cervical Cancer Screening Pa p with HPV Testing (Age 30 to 64) Every 5 Years 2012 Cervical Cancer Screening with HPV 2012 DTaP, Tdap and Td Vaccines ( 1 - Tdap) 10/09/2018 10/08/2018 Annual Physical 04/13/2022 04/13/2021 Mammogram Screening 2022 COVID-19 Vaccine (4 - 2023-2 5 season) 2023 08/17/2021, 12/15/2020, 11/24/2020 Influenza Adult (#1) 2025 Postpon ed from 12/05/2023 (Patient Refused) Hepatitis C Completed 11/18/2022, 09/27/2013, 10/01/2012 PHQ-2 (Physician [place]) Completed 04/15/2024 HPV Vaccines Aged Out No longer eligi ble based on patient's age to complete this topic Meningococcal B Vaccine Aged Out No l onger eligible based on patient's age to complete this topic Meningococcal Vaccine Aged Out No lilia jameson eligible based on patient's age to complete this topic Pneumococcal Vaccine: Pediatrics (0 to 5 Years) and At-Risk Patients (6 to 64 Years) Aged Out No longer eligible b ased on patient's age to complete this topic RSV Immunizations Under 20 Months Aged Out No longer eligible b ased on patient's age to complete this topic Procedures Procedure Name Priority Date/Time Associated Diagnosis Comments LIPASE Routine 04/24/2024 12:13 PM PRODUCE LABORER Epigastric pain CBC, AUTO, NO DIFF Routine 04/24/2024 12 :13 PM PRODUCE LABORER Epigastric pain COMPREHENSIVE METABOLIC PANEL Routine 04/24/2024 12:13 PM PRODUCE LABORER Epigastric pain COLLECTION VENOUS BLOOD VENIPUNCTURE Routine 04/15/2024 9:31 AM PRODUCE LABORER Less than 8 weeks gestation of ([facility]) Epigastric abdominal pain LIPASE Routine 04/15/2024 9:20 AM PRODUCE LABORER Epigastric abdominal pain AMYLASE Routine 04/15/2024 9:20 AM PRODUCE LABORER Epigastric abdominal pain CBC W/DIFF AUTOMATED Routine 04/15/2024 9:20 AM PRODUCE LABORER Epigastric abdominal pain COMPREHENSIVE METABOLIC PANEL Routine 04/15/2024 9:20 AM PRODUCE LABORER Epigastric abdominal pain HCG QUANT (SERUM)-CHORIONIC GONADOTROPIN Routine 04/15/2024 9:20 AM PRODUCE LABORER Less than 8 weeks gestation of ([facility]) TEST URINE Routine 04/15/2024 Less than 8 weeks gestation of ([facility]) Epigastric abdominal pain HEP C SCANNED ORDERS Routine 11/18/2022 from Last 3 Months or Most Recently Relevant to Health Maintenance Results * (ABNORMAL) COMPREHENSIVE METABOLIC PANEL (04/24/2024 12:13 PM PRODUCE LABORER) Only the most recent of2 resultswithin the time period is included. GLUCOSE 88 70 - 99 MG/DL 04/24/2024 1:08 PM [facility] BUN 16 7 - 18 MG/DL 04/24/2024 1:08 PM [facility] CREATININE S/P/B 1.12(H) 0.55 - 1.02 MG/DL 04/24/2024 1:08 PM [facility] SODIUM S/P/B 138 136 - 145 MMOL/L 04/24/2024 1:08 PM [facility] POTASSIUM S/P/B 4.8 3.5 - 5.1 MMOL/L 04/24/2024 1:08 PM [facility] CHLORIDE S/P/B 100 100 - 108 MMOL/L 04/24/2024 1:08 PM [facility] CO2 30.0 21 - 32 MMOL/L 04/24/2024 1:08 PM [facility] CALCIUM S/P/B 9.6 8.5 - 10.1 MG/DL 04/24/2024 1:08 PM [facility] BILIRUBIN TOTAL S/P/B 0.4 0.2 - 1.2 MG/DL 04/24/2024 1:08 PM [facility] TOTAL PROTEIN S/P/B 7.7 6.4 - 8.2 G/DL 04/24/2024 1:08 PM [facility] ALBUMIN S/P/B 4.1 3.4 - 5.0 G/DL 04/24/2024 1:08 PM [facility] AST 14(L) 15 - 37 U/L 04/24/2024 1:08 PM [facility] ALT 19 14 - 55 U/L 04/24/2024 1:08 PM [facility] ALKALINE PHOSPHATASE S/P/B 78 50 - 136 U/L 04/24/2024 1:08 PM [facility] ANION GAP 8.0 5 - 15 MMOL/L 04/24/2024 1:08 PM [facility] BUN CREATININE RATIO 14.3 6 - 26 04/24/2024 1:08 PM [facility] A/G RATIO 1.1 1.0 - 2.0 RATIO 04/24/2024 1:08 PM [facility] GFR ESTIMATE 63(L) >90 ML/MIN/1.7 3 M2 04/24/2024 1:08 PM [facility] Comment: NOTE: eGFR is not calculated for patients <18 years of age. This is an estimated GFR calculation using the new CKD EPI creatinine equation without race and so does not require a correction factor for race. This estimated GFR should not be used for calculating drug doses. 04/24/2024 12:1 3 PM PRODUCE LABORER us Kimberlyn [facility]ALES [facility] Final Result [facility] [address] [place] [address], * (ABNORMAL) CBC, AUTO, NO DIFF (04/24/2024 12:13 PM PRODUCE LABORER) WBC 9.32 4.4 - 11.0 x10'3/uL 04/24/2024 12:53 PM [facility] RBC 4.86 4.50 - 5.10 x10'6/uL 04/24/2024 12:53 PM [facility] HGB 14.5 12.3 - 15.3 G/DL 04/24/2024 12:53 PM [facility] HCT 42.1 35.9 - 44.6 % 04/24/2024 12:53 PM [facility] MCV 86.6 80.0 - 96.0 FL 04/24/2024 12:53 PM [facility] MCH 29.8 25.3 - 30.9 PG 04/24/2024 12:53 PM [facility] MCHC 34.4(H) 31.0 - 34.1 G/DL 04/24/2024 12:53 PM [facility] RDW 11.9(L) 12.4 - 15.1 % 04/24/2024 12:53 PM [facility] PLT 327 151 - 353 x10'3/uL 04/24/2024 12:53 PM [facility] MPV 9.1(L) 9.6 - 12.0 FL 04/24/2024 12:53 PM PRODUCE LABORER [facility] 04/24/2024 12:1 3 PM PRODUCE LABORER Kimberlyn ROSALES LABORAT[facility] Final Result Performing Organization Address [facility]/ZIP Co de Phone Number [facility] [address] [place] [address], * (ABNORMAL) LIPASE (04/24/2024 12:13 PM PRODUCE LABORER) Only the most recent of2 resultswithin the time period is included. LIPASE 163(H) 16 - 77 UNITS/L 04/24/2024 1:08 PM PRODUCE LABORER [facility] 04/24/2024 12:1 3 PM PRODUCE LABORER Kimberlyn KWON LABORAT[facility] Final Result Performing Organization Address [facility] de Phone Number [facility] [address] [place] [address], * HCG QUANT (SERUM)-CHORIONIC GONADOTROPIN (04/15/2024 9:20 AM PRODUCE LABORER) HCG NON <5 mIU/mL [facility] [employer] [facility] Comment: Reference Range Non or premenopausal <5 Postmenopausal <10 Values from different assay methods may vary. The use of this assay to monitor or to diagnose patients with cancer or any condition unrelated to has not been cleared or approved by the FDA or the surveying crew stake runner of the assay. 04/15/2024 9:20 AM PRODUCE LABORER 04/16/2024 4:28 AM PRODUCE LABORER Narrative Resulting Agency Comment Performing Organization Information: Site ID: [place] Name: [facility] Address: [address] [address] Director: Marry Slaughter MD José Osborn MD LABORATORY Final Resul t [facility] [address] [address], [place] * (ABNORMAL) CBC W/DIFF AUTOMATED (04/15/2024 9:20 AM PRODUCE LABORER) WBC 7.1 3.8 - 10.8 Thousand/ uL [facility] RBC 5.18(H) 3.80 - 5.10 Million/u L [facility] HGB 15.2 11.7 - 15.5 g/dL [facility] HCT 45.7(H) 35.0 - 45.0 % [facility] MCV 88.2 80.0 - 100.0 fL [facility] MCH 29.3 27.0 - 33.0 pg [facility] MCHC 33.3 32.0 - 36.0 g/dL [facility] Comment: For adults, a slight decrease in the calculated MCHC value (in the range of 30 to 32 g/dL) is most likely not clinically significant; however, it should be interpreted with caution in correlation with other red cell parameters and the patient's clinical condition. RDW 12.1 11.0 - 15.0 % [facility] PLT 329 140 - 400 Thousand/ uL [facility] MPV 9.4 7.5 - 12.5 fL [facility] ABS. NEUTROPHILS 3,600 1,500 - 7,800 cells/uL [facility] ABS. LYMPHOCYTES 2,925 850 - 3,900 cells/uL [facility] ABS. MONOCYTES 391 200 - 950 cells/uL [facility] ABS. EOSINOPHILS 92 15 - 500 cells/uL [facility] ABS. BASOPHILS 92 0 - 200 cells/uL [facility] SEG NEUTROPHILS 50.7 % [facility] LYMPHOC[facility]TES 41.2 % [facility] MONOCYTES 5.5 % [facility] EOSINOPHILS 1.3 % [facility] BASOPHILS 1.3 % [facility] 04/15/2024 9:20 AM PRODUCE LABORER 04/16/2024 4:28 AM PRODUCE LABORER Narrative Resulting Agency Comment Performing Organization Information: Site ID: [place] Name: [employer] [facility] Address: [address] [place] [id number] Director: Marry Slaughter MD José Osborn MD LABORATORY Final Resul t Performing Organization Address [facility] de Phone Number [facility] [employer] [facility] [address] [place] [address], * AMYLASE (04/15/2024 9:20 AM PRODUCE LABORER) AMYLASE S/P/B 55 21 - 101 U/L [employer] [facility] 04/15/2024 9:20 AM PRODUCE LABORER 04/16/2024 4:28 AM PRODUCE LABORER Narrative Resulting Agency Comment Performing Organization Information: Site ID: [place] Name: [facility] Address: [address] [place] [id number] Director: Marry Slaughter MD José Osborn MD LABORATORY Final Resul t Performing Organization Address [facility] de Phone Number [facility] [employer] [facility] [id number] [place] [address], * TEST URINE (04/15/2024) URINE HCG TEST NEGATIVE NEGATIVE [id number] Internal Control: VALID VALID [id number], [place] URINE SPECIMEN FROM URETHRA / Unknown 04/15/2024 José Osborn MD URINE ORDERABLES Final Resu lt Performing Organization Address [facility] Co de Phone Number [id number], [place] [address] [place] [address], [place] [phone] * HEP C SCANNED ORDERS (11/18/2022) 11/18/2022 [facility] Scanned SCANNING Edited Res ult - Final Performing Organization Address [facility] Co de Phone Number [facility] from Last 3 Months or Most Recently Relevant to Health Maintenance Insurance [facility] Advance Directives * Full Code (Latest Code Status on File) Date Activated Date Inactivated Comments 07/28/2022 2:29 PM 07/29/2022 4:14 PM Care Teams Bicycle Repairer Relationship Specialty Start Date End Date Janet Alejandra [facility]N [address] [facility] [address] [place] [address] PCP - General NURSE PRACTITIONER 06/10/22
[2024-05-20 09:54] VITALS: BP 101/68; PULSE 75; RESP 18; TEMP 36.1; O2SAT 98
[2024-05-20 09:56] LABS: BEDSIDEPREGUCG Negative (Negative)
[2024-05-20] MEDS: LACTATED RINGERS 1,000 ML 150 ML IV CONT (10:03)
--- NOTE | 2024-05-20 10:14 | SUR.PREOP ---
Patient states she is nauseous and requesting zofran. Orders received for Zofran 4mg IV push once from Dr. Rouse.
[2024-05-20] MEDS: ONDANSETRON INJ 4 MG/2 ML VIAL IV PUSH (10:15)
--- NOTE | 2024-05-20 10:19 | P.PNAN_ITS ---
Anes - Initial Pre Proc Eval Procedure: Operation Date: 05/20/24 10:45 Proposed Procedures p Esophagogastroduodenoscopy - Haseeb Cabrera MD Date/Time: 05/20/24 10:19 Surgeon: Haseeb Cabrera MD Pre Op Diagnosis: Epigastric pain,abnormal levels of other serum Patient Data Age: 43 Gender: F Height: 1.57 m Weight: 70.3 kg Last Vital Signs Temp 36.1 C L 05/20/24 09:54 Pulse 75 05/20/24 09:54 Resp 18 05/20/24 09:54 BP 101/68 05/20/24 09:54 Pulse Ox 98 05/20/24 09:54 O2 Del Method Room Air 05/20/24 09:54 Allergies Allergy/AdvReac Type Severity Reaction Status Date / Time fentanyl Allergy Unknown Unknown Verified 05/20/24 09:52 Home Medications ?Medication ?Instructions ?Recorded ?Confirmed ?Type cholecalciferol (vitamin D3) 25 25 mcg PO DAILY 11/18/22 05/20/24 History mcg (1,000 unit) tablet lamotrigine 100 mg tablet 100 mg PO BID 11/18/22 05/20/24 History lamotrigine 25 mg tablet 25 mg PO DAILY 11/18/22 05/20/24 History norethindrone (contraceptive) 0.35 0.35 mg PO DAILY 11/18/22 05/20/24 History mg tablet sertraline 100 mg tablet 100 mg PO BID 11/18/22 05/20/24 History trazodone 100 mg tablet 150 mg PO QHS PRN sleep 11/18/22 05/10/24 History ziprasidone HCl 80 mg capsule 80 mg PO BID 11/18/22 05/20/24 History omeprazole 40 mg capsule,delayed 40 mg PO BID #60 caps 04/23/24 05/20/24 Rx release sucralfate 1 gram tablet (Carafate) 1 g PO ACHS #120 tabs 04/23/24 05/20/24 Rx ferrous sulfate 325 mg (65 mg 325 mg PO DAILY 05/10/24 05/20/24 History iron) tablet (Feosol) Laboratory Tests 05/20/24 09:54 POC Urine HCG, Qual Negative (Negative) Patient hx anesthesia problems: none Family hx anesthesia problems: none Results Review: All pre-operative results and documents have been reviewed as part of the pre- operative evaluation. [facility] Past Medical History Medical History Bloating Fibromyalgia Anxiety and depression Hx of adenomatous colonic polyps Irritable bowel syndrome with diarrhea Epigastric pain (~10/10/23) Abnormal finding of biliary tract Tachycardia Surgical History Surgical History Hx laparoscopic cholecystectomy Social History Social History Smoking status: Current every day smoker Substance use: current Substance use type: marijuana Last use: 05/10/24 Living arrangements: with family Anes - Eval Final PreProcedure Day of Procedure 05/20/24 10:19 Patient weight: overweight Heart: regular rate and rhythm Lungs: clear to auscultation Airway: Mallampati scale class II Neurological: alert and oriented Last oral intake: >/= 8 hours ASA classification: III Emergent: no Anesthetic plan: proceed Anesthesia type and monitoring: general GIVS and standard monitoring Results Review: All pre-operative results and documents have been reviewed as part of the pre- operative evaluation. Informed Consent: The patient's anesthetic plan and its attendant risks and benefits were discussed with the patient/family/POA. Questions were solicited and answers provided to the satisfaction of the patient/family/POA.
--- NOTE | 2024-05-20 10:40 | WPDHPUPDATE1 ---
History and Physical Update Update Date/Time: 05/20/24 10:40 History and Physical has been reviewed, including an updated exam of the patient. There are NO changes in the patient's condition. Risks, benefits, and alternatives have been discussed and questions answered. Patient agrees to proceed with procedure.
[2024-05-20 10:54] VITALS: BP 102/71; PULSE 68; RESP 20; O2SAT 100
[2024-05-20 11:04] VITALS: BP 115/70; PULSE 62; RESP 20; O2SAT 100
[2024-05-20 11:14] VITALS: BP 108/68; PULSE 64; RESP 20; O2SAT 100
== END 2024-05-20 11:16 | disposition home or self-care (01) ==
PROVIDERS: PCP Registered Nurse; Referring Provider Nurse Practitioner; Visit Provider Internal Medicine Gastroenterology
PROC: 0DJ08ZZ Inspection of Upper Intestinal Tract, Via Natural or Artificial Opening Endoscopic (ICD-10-PCS; CPT 43239; principal; 2024-05-20 10:45)
DX: R74.8 Abnormal levels of other serum enzymes (principal); K29.50 Unspecified chronic gastritis without bleeding; F41.8 Other specified anxiety disorders; G47.00 Insomnia, unspecified; K58.1 Irritable bowel syndrome with constipation; K21.9 Gastro-esophageal reflux disease without esophagitis; N30.10 Interstitial cystitis (chronic) without hematuria; G89.4 Chronic pain syndrome; G93.32 Myalgic encephalomyelitis/chronic fatigue syndrome; R00.0 Tachycardia, unspecified; M79.7 Fibromyalgia; F17.210 Nicotine dependence, cigarettes, uncomplicated; F12.90 Cannabis use, unspecified, uncomplicated; Z98.890 Other specified postprocedural states; Z90.49 Acquired absence of other specified parts of digestive tract; Z86.0100 Personal history of colon polyps, unspecified
CPT/HCPCS: 43239; 88305; J2003; J2405; J2704; J7120

== ENCOUNTER 2024-06-03 06:30 | Outpatient (CLI) | payer OTHER, SELFPAY ==
--- NOTE | ~2024-06-03 | MR_ITS ---
EXAMINATION: MR MRCP wo/w con/w 3D wo ind DATE: 06/03/2024 08:22 INDICATION: Epigastric abdominal pain. TECHNIQUE: Magnetic resonance imaging (MRI) of the abdomen was performed without and with 14 mL ProHa nce intravenous contrast. Sequences included coronal T2-weighted FS FSE, coronal T2-weighted FSE, axi al T1-weighted LAVA, coronal FS FIESTA, axial dual-echo T1-weighted SPGR, coronal lava-FLEX, sagittal T2-weighted FSE, axial T2-weighted FSE, and axial DWI. Thick-slab T2-weighted FSE images were obtain ed for magnetic resonance cholangiopancreatography (MRCP). Maximum intensity projection 3-D reconstru ctions of the volumetric data were created by the technologist. Postcontrast sequences included coron al LAVA-flex and time course of axial T1-weighted LAVA. COMPARISON: CT abdomen and pelvis 01/07/2012, abdomen ultrasound 12/07/2022 FINDINGS: ABDOMEN MRI: The liver is normal. The gallbladder is absent. The spleen, pancreas, adrenal glands, an d kidneys are normal. There are no dilated loops of bowel. There are no pathologically enlarged lymph nodes. There is no free intraperitoneal fluid. There is no significant stenosis of celiac axis, supe rior mesenteric artery, the renal arteries, or inferior mesenteric artery. ABDOMEN MRCP: The common duct is normal and measures 6 mm. No choledocholithiasis. IMPRESSION: 1. Normal abdomen status post cholecystectomy. Reviewed, dictated and finalized at location A.
--- OUTSIDE RECORDS SUMMARY | 2024-06-03 06:33 | XMS_ITS ---
Author Organization [facility] Address [address] [place] [address] Care Team Providers Care Tufting Machine Operator Single Needle Name Role Phone Jamaal Peters Primary Care [...] 03/27/2024 Encounters Encounter Location Date Provider Diagnosis [address] [place] [address] 03/27/2024 Jamaal Peters Bipolar disorder F31.9 ; [...] health CRISIS, please reach out to [phone] ([place] [facility]), 911, go to the emergency department, or contact the [facility] Crisis Unit/Team. Follow up as scheduled in [...] to the emergency department, or contact the [facility] Crisis Unit/Team. Follow up as scheduled in [...] Notes * Davian ROB:1980 (43 yo F)Acc No.[id number]:03/27/2024 Patient: Aliza JACOBSON Provider: Kel Peters APN :1980 A ge:43 Y S ex:Female Date:03/27/2024 Address:[address] [place] [address], [address] Subjective: * Chief Complaints: * 2 Month F/U * HPI: S ummary: History of Presenting Illness: Patient is presenting for 2 month follow up. Continues doing well on current medication regimen. 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 Leisure: going to gym, [...] Procedure Codes: 3 008F BODY MASS INDEX [id number] MEDICAL NUTRITION, INDIV, [id number] TOBACCO NON-USER * Preventive Medicine: Counseling: C are goal follow-up plan: BMI management provided Y es Above Normal BMI Follow-up L ifestyle education regarding diet * Follow Up: 3 Months - TELEPHONE (Reason: 3 month psych follow up/med refill) * * GHT SHIPPING AGENT Sign off status: Completed true * Provider: Kel Peters APN Date: 03/27/2024 Generated for Janeth hayden/Ruchi/Lena on: 0 06/03/2024 06:33 AM CDT History and Physical Notes * [...] SUZANNE-7 Score Total score: 0 : Screening [place] Suicide Sev erity Rating Scale (LF) Do [...]
--- OUTSIDE RECORDS SUMMARY | 2024-06-03 06:33 | XMS_ITS | Clinical Summary ---
Author Organization [facility] Address [address] [place] [address] Care Team Providers Care Road Patcher Name Role Phone Nettie George MD Primary Care Provider [phone] Source Comments [facility],non-owned Affiliates and Associated Physician Practices is amultiple site organization consisting of ambulatory clinics and hospital sitesin [place], [place], [place] and [place]. This disclosure is being madepursuant to the Care Everywhere program and may not contain all information available regarding this patient. Last updated 17.[facility] Pluck Allergies Active Allergy Reactions Criticality Noted Date [...] 2001 LIPID TESTING 07/24/2022 07/24/2017 COVID-19 VACCINE ( - 2023-2 5 season) 2023 INFLUENZA VACCINE [...] 245(H) <200 mg/dL 07/24/2017 6:49 AM CDT [facility] Triglycerides 335(H) <150 mg/dL 07/24/2017 6:49 AM CDT [facility] HDL Cholesterol 39(L) >40 mg/dL 8 6:49 AM CDT [facility] Chol HDL Ratio 6.3(H) 1.0 - 6.0 07/24/2017 6:49 AM CDT [facility] LDL Calculated 139(H) 65 - 130 mg/dL 07/24/2017 6:49 AM T [facility] VLDL Calculated 67(H) 10 - 40 mg/dL 07/24/2017 6:49 AM T [facility] Blood BLOOD SPECIMEN / Unknown Lab Venipuncture / Unknown 07/24/2017 6:15 AM CDT 07/24/2017 6:15 AM CDT Narrative [facility] - 07/24/2017 6:49 AM CDT Lipid [...] Cabrales MD LAB - CHEMISTRY LOREN FANG [facility] [address] [place] [address], [facility] from Last 3 Months or Most Recently Relevant to Health Maintenance Advance Directives * Full Code (Latest Code Status on File) Date Activated Date Inactivated Comments 07/20/2017 2:30 PM 07/24/2017 1:[address] Patcher Relationship Specialty Start Date End Date Nettie George MD PCP - General Internal Medicine 07/20/17
--- OUTSIDE RECORDS SUMMARY | 2024-06-03 06:33 | XMS_ITS | Referral Summary ---
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
--- OUTSIDE RECORDS SUMMARY | 2024-06-03 06:33 | XMS_ITS | Clinical Summary ---
Author Organization [facility] Address [address] [place] [address] Care Team Providers Care Facilities Engineer Name Role Phone Janet Alejandra APRN Primary Care Provider [phone] Allergies Active Allergy Reactions Criticality Noted Date Comments Fentanyl Dizziness Low 09/20/2013 Tramadol Dizziness Low 07/20/2017 Medications sertraline 100 MG tablet Take 1 tablet (100 mg total) by mouth 2 (two) times a day. 05/24/19 15 Active lamoTRIgine 100 MG tablet Take 1 tablet (100 mg total) by mouth 2 (two) times daily. 03/25/19 21 Active lamoTRIgine 25 MG tablet Take 1 tablet (25 mg total) by mouth 2 (two) times daily. for 30 days 10/07/19 21 Active Suvorexant (BELSOMRA) 10 MG Tab Take 10 mg by mouth nightly. Active ziprasidone 80 MG capsule 2 capsules (160 mg total). 160mg nightly 03/17/19 22 Active vitamin D3, cholecalciferol , 1000 UNIT Tab tablet Take 1 tablet (25 mcg total) by mouth daily. Active Norethindrone Acet-Ethinyl Est 1.5-30 MG-MCG tablet Take 1 tablet by mouth daily. Active Cholecalciferol (VITAMIN D3) 20 MCG (800 UNIT) TabIndications: Chronic fatigue Take 1 tablet by mouth daily. 30 tablet 10/26/19 23 Active omeprazole (PRILOSEC) 40 MG capsule Take 1 capsule (40 mg total) by mouth daily. 11/23/19 23 Active traZODone (DESYREL) 150 MG tablet Take 1 tablet (150 mg total) by mouth nightly at bedtime. 03/22/19 24 Active buPROPion XL (WELLBUTRIN XL) 150 MG 24 hr tablet Take 1 tablet (150 mg total) by mouth every morning. 04/06/19 24 Active metroNIDAZOLE (METROGEL) 0.75 % vaginal gel Place vaginally 2 (two) times daily. 10/26/19 24 Active terconazole (TERAZOL 3) 0.8 % vaginal cream Place 1 applicator vaginally nightly at bedtime. 11/02/19 24 Active gabapentin (NEURONTIN) 100 MG capsuleIndicati ons:Fibromyalgi a TAKE 1 CAPSULE BY MOUTH IN THE MORNING AND 3 NIGHTLY 120 capsule 2 11/03/19 24 Active Additional Information Patient not taking.Reported on 04/15/2024 ubrogepant (UBRELVY) 100 MG tabletIndicatio ns:Other migraine without status migrainosus, not intractable Take 1 tablet (100 mg total) by mouth 2 (two) times daily as needed for Migraine. Max of 2 tablets (200 mg) in 24 hours 8 tablet 02/16/20 24 Active meloxicam (MOBIC) 15 MG tabletIndicatio ns:Arthralgia, unspecified joint Take 1 tablet by mouth once daily 90 tablet 05/31/19 25 Active meloxicam (MOBIC) 15 MG tabletIndicatio ns:Arthralgia, unspecified joint Take 1 tablet by mouth once daily 90 tablet 1 11/16/19 24 025 Discontinued Active Problems Problem Noted Date Diagnosed Date Pancreatitis ([facility]/HCC) 07/28/2022 Epigastric pain 04/29/2022 Overview (04/29/2022): Added automatically from request for surgery [id number] Conductive hearing loss of l eft ear with unrestricted hearing of right ear 08/27/2021 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 Colon cancer screening 07/19/2021 Overview (07/19/2021): Added automatically from request for surgery [id number] Neck and shoulder pain 05/01/2020 Abnormal glucose 06/27/2019 Fibromyalgia 10/15/2018 Chronic interstitial cystitis 12/30/2015 Chronic pain syndrome 09/23/2015 IBS (irritable bowel syndrome) 04/06/2015 Chronic fatigue syndrome 08/27/2014 Sleep disorder 08/27/2014 Tachycardia 05/12/2014 Back pain, thoracic 04/02/2014 OCD (obsessive compulsive disorder) 04/02/2014 Overview (03/29/2018): Annotation - [id number]: Dr Sabra Calvillo Psychiatrist Hand weakness 01/08/2014 Arthralgia of both hands 12/11/2013 Overview (03/29/2018): Annotation - [id number]: L hand worse than R, thumb pain worse, better with imobilizer Severe recurrent major depression ([facility] HHS/H CC) 11/26/2013 Migraine, unspecified, [...] Encounters Date Type Department Care Team Description 05/20/2024 Scan [employer] INFO SRVCS Scanned, Doc [facility] EGD (SCAN) 04/24/2024 11:58 AM EXPLOSIVES ENGINEER - 04/24/2024 11:59 PM EXPLOSIVES ENGINEER Hospital Encounter [facility] [address] [place] [address] Kimberlyn Cain APNP Discharge Disposition: Home or Self Care (Routine Discharge) 04/24/2024 Orders Only [facility] [address] [place] [address] Kimberlyn Cain APNP 04/24/2024 Travel 04/18/2024 Telephone [facility] Family & Internal [address] [phone] Janet lAejandra APRN Other (Request fax records ) 04/16/2024 Red Blue Voiceturner Message Enc [facility] Family [facility] Internal [address] [phone] Horacio [facility] Provider results 04/15/2024 9:20 AM EXPLOSIVES ENGINEER Laboratory Only [facility] Internal [address] [phone] Janet Alejandra APRN 04/15/2024 8:20 AM EXPLOSIVES ENGINEER Office Visit [facility] Internal [address] [address] José Osborn MD Abdominal Pain (Acute abd pain burning stomach OTC not working can't eat lost 4 lbs has a gastrologist at [facility] seen on 04/08/24 did not have these s/s / wanting labs ) 04/15/2024 Red Blue Voicehart Message Enc [facility] Medical Group Family & Internal Medicine - [place] [address] [place] [address] Horacio, [facility] Provider results 04/15/2024 Travel from Last 3 [...] money to buy more. Never true 07/29/19 Within the past 12 months, t he [...] place to sleep or slept in a mcc (including now)? No 07/28/2022 Comments No Sex and Gender Information Value Date Recorded Sex Assigned at Female 04/15/2024 8:39 AM EXPLOSIVES ENGINEER Legal Sex Female 10:18 PM CDT Gender Identity Female 04/15/2024 8:39 AM EXPLOSIVES ENGINEER Sexual Orientation Straight 04/15/2024 8: 39 AM EXPLOSIVES ENGINEER Occupation Industry Job Start Date Job End Date Not on file Not on file Not on file Not on file Last Filed Vital Signs Vital Sign Reading Time Taken Comments Blood Pressure 134/76 04/15/2024 8:26 AM EXPLOSIVES ENGINEER Pulse 89 04/15/2024 8:26 AM EXPLOSIVES ENGINEER Temperature 36.2 C (97.1 F) 04/15/2024 8:26 AM EXPLOSIVES ENGINEER Respiratory Rate 16 04/15/2024 8:26 AM EXPLOSIVES ENGINEER Oxygen Saturation 98% 04/15/2024 8:26 AM EXPLOSIVES ENGINEER Inhaled Oxygen Concentration - - Weight 69.3 kg (152 lb 12.8 oz) 04/15/2024 8:26 AM EXPLOSIVES ENGINEER Height 157.5 cm (5' 2 ) 04/15/2024 8:26 AM EXPLOSIVES ENGINEER Body Mass Index 27.95 04/15/2024 8:26 AM EXPLOSIVES ENGINEER Plan of Treatment Health Maintenance Due Date [...] C Completed 11/18/2022, 09/27/2013, 10/01/2012 PHQ-2 (Physician [place]) Completed 04/15/2024 HPV Vaccines Aged Out No [...] Procedure Name Priority Date/Time Associated Diagnosis Comments EGD GENERIC (SCAN ORDER) 05/20/2024 LIPASE Routine 04/24/2024 12:13 PM EXPLOSIVES ENGINEER Epigastric pain CBC, AUTO, NO DIFF Routine 04/24/2024 12 :13 PM EXPLOSIVES ENGINEER Epigastric pain COMPREHENSIVE METABOLIC PANEL Routine 04/24/2024 12:13 PM EXPLOSIVES ENGINEER Epigastric pain COLLECTION VENOUS BLOOD VENIPUNCTURE Routine 04/15/2024 9:31 AM EXPLOSIVES ENGINEER Less than 8 weeks gestation of ([facility]) Epigastric abdominal pain LIPASE Routine 04/15/2024 9:20 AM EXPLOSIVES ENGINEER Epigastric abdominal pain AMYLASE Routine 04/15/2024 9:20 AM EXPLOSIVES ENGINEER Epigastric abdominal pain CBC W/DIFF AUTOMATED Routine 04/15/2024 9:20 AM EXPLOSIVES ENGINEER Epigastric abdominal pain COMPREHENSIVE METABOLIC PANEL Routine 04/15/2024 9:20 AM EXPLOSIVES ENGINEER Epigastric abdominal pain HCG QUANT (SERUM)-CHORIONIC GONADOTROPIN Routine 04/15/2024 9:20 AM EXPLOSIVES ENGINEER Less than 8 weeks gestation of ([facility]) TEST URINE Routine 04/15/2024 Less than 8 weeks gestation of ([facility]) Epigastric abdominal pain HEP C SCANNED ORDERS Routine 11/18/2022 from Last 3 Months or Most Recently Relevant to Health Maintenance Results * EGD GENERIC (SCAN ORDER) (05/20/2024) 05/20/2024 us [facility] Scanned SCANNING Final Resu lt * (ABNORMAL) COMPREHENSIVE METABOLIC PANEL (04/24/2024 12:13 PM EXPLOSIVES ENGINEER) Only the most recent of2 resultswithin the time period is included. GLUCOSE 88 70 - 99 MG/DL 04/24/2024 1:08 PM EXPLOSIVES ENGINEER [facility] BUN 16 7 - 18 MG/DL 04/24/2024 1:08 PM [facility] CREATININE S/P/B 1.12(H) 0.55 - 1.02 MG/DL 04/24/2024 1:08 PM [facility] SODIUM S/P/B 138 136 - 145 MMOL/L 04/24/2024 1:08 PM [facility] POTASSIUM S/P/B 4.8 3.5 - 5.1 MMOL/L 04/24/2024 1:08 PM [facility] CHLORIDE S/P/B 100 100 - 108 MMOL/L 04/24/2024 1:08 PM [facility] CO2 30.0 21 - 32 MMOL/L 04/24/2024 1:08 PM [facility] CALCIUM S/P/B 9.6 8.5 - 10.1 MG/DL 04/24/2024 1:08 PM [facility] BILIRUBIN TOTAL S/P/B 0.4 0.2 - 1.2 MG/DL 04/24/2024 1:08 PM [facility] TOTAL PROTEIN S/P/B 7.7 6.4 - 8.2 G/DL 04/24/2024 1:08 PM [facility] ALBUMIN S/P/B 4.1 3.4 - 5.0 G/DL 04/24/2024 1:08 PM [facility] AST 14(L) 15 - 37 U/L 04/24/2024 1:08 PM [facility] ALT 19 14 - 55 U/L 04/24/2024 1:08 PM [facility] ALKALINE PHOSPHATASE S/P/B 78 50 - 136 U/L 04/24/2024 1:08 PM [facility] ANION GAP 8.0 5 - 15 MMOL/L 04/24/2024 1:08 PM [facility] BUN CREATININE RATIO 14.3 6 - 26 04/24/2024 1:08 PM [facility] A/G RATIO 1.1 1.0 - 2.0 RATIO 04/24/2024 1:08 PM [facility] GFR ESTIMATE 63(L) >90 ML/MIN/1.7 3 M2 04/24/2024 1:08 PM [facility] Comment: NOTE: eGFR is not calculated for patients <18 years of age. This is an estimated GFR calculation using the new CKD EPI creatinine equation without race and so does not require a correction factor for race. This estimated GFR should not be used for calculating drug doses. 04/24/2024 12:1 3 PM EXPLOSIVES ENGINEER us Kimberlyn [facility]ALES [facility] Final Result [facility] [address] [place] [address], [place] [phone] * (ABNORMAL) CBC, AUTO, NO DIFF (04/24/2024 12:13 PM EXPLOSIVES ENGINEER) WBC 9.32 4.4 - 11.0 x10'3/uL 04/24/2024 12:53 PM [facility] RBC 4.86 4.50 - 5.10 x10'6/uL 04/24/2024 12:53 PM [facility] HGB 14.5 12.3 - 15.3 G/DL 04/24/2024 12:53 PM [facility] HCT 42.1 35.9 - 44.6 % 04/24/2024 12:53 PM [facility] MCV 86.6 80.0 - 96.0 FL 04/24/2024 12:53 PM [facility] MCH 29.8 25.3 - 30.9 PG 04/24/2024 12:53 PM EXPLOSIVES ENGINEER [facility] MCHC 34.4(H) 31.0 - 34.1 G/DL 04/24/2024 12:53 PM [facility] RDW 11.9(L) 12.4 - 15.1 % 04/24/2024 12:53 PM EXPLOSIVES ENGINEER [facility] PLT 327 151 - 353 x10'3/uL 04/24/2024 12:53 PM [facility] MPV 9.1(L) 9.6 - 12.0 FL 04/24/2024 12:53 PM [facility] 04/24/2024 12:1 3 PM EXPLOSIVES ENGINEER Kimberlyn Cain [facility] Final Result Performing Organization Address City/[facility]/ZIP Co de Phone Number [facility] [address] [place] [address], [place] [phone] * (ABNORMAL) LIPASE (04/24/2024 12:13 PM EXPLOSIVES ENGINEER) Only the most recent of2 resultswithin the time period is included. Pathologist [facility] [place] LIPASE 163(H) 16 - 77 UNITS/L 04/24/2024 1:08 PM [facility] 04/24/2024 12:1 3 PM EXPLOSIVES ENGINEER [facility] Final Result [facility] [address] [place] [address], [place] [phone] * HCG QUANT (SERUM)-CHORIONIC GONADOTROPIN (04/15/2024 9:20 AM EXPLOSIVES ENGINEER) Pathologist [facility] HCG NON <5 mIU/mL [facility] [employer] [facility] Comment: Reference Range Non or premenopausal <5 Postmenopausal <10 Values from different assay methods may vary. The use of this assay to monitor or to diagnose patients with cancer or any condition unrelated to has not been cleared or approved by the FDA or the rug layer of the assay. 04/15/2024 9:20 AM EXPLOSIVES ENGINEER 04/16/2024 4:28 AM EXPLOSIVES ENGINEER Narrative Resulting Agency Comment Performing Organization Information: Site ID: [place] Name: [facility] Address: [address] [place] [address] Director: Marry Slaughter MD us José Osborn MD LABORATORY Final Resul t ADRIANA REDD [facility] JAM[employer] [facility] [id number] [place], [place] [address] [address], [place] * (ABNORMAL) CBC W/DIFF AUTOMATED (04/15/2024 9:20 AM EXPLOSIVES ENGINEER) WBC 7.1 3.8 - 10.8 Thousand/ uL [employer] [facility] RBC 5.18(H) 3.80 - 5.10 Million/u L [employer] [facility] HGB 15.2 11.7 - 15.5 g/dL [employer] [place] HCT 45.7(H) 35.0 - 45.0 % [employer] [facility] MCV 88.2 80.0 - 100.0 fL [employer] [place] MCH 29.3 27.0 - 33.0 pg [employer] [place] MCHC 33.3 32.0 - 36.0 g/dL [employer] [facility] Comment: For adults, a slight decrease in the calculated MCHC value (in the range of 30 to 32 g/dL) is most likely not clinically significant; however, it should be interpreted with caution in correlation with other red cell parameters and the patient's clinical condition. RDW 12.1 11.0 - 15.0 % [employer] [place] PLT 329 140 - 400 Thousand/ uL [employer] [place] MPV 9.4 7.5 - 12.5 fL [employer] [place] ABS. NEUTROPHILS 3,600 1,500 - 7,800 cells/uL [employer] [place] ABS. LYMPHOCYTES 2,925 850 - 3,900 [...] % [facility] [place] 04/15/2024 9:20 AM EXPLOSIVES ENGINEER 04/16/2024 4:28 AM EXPLOSIVES ENGINEER Narrative Resulting Agency Comment Performing Organization Information: Site ID: [facility] Address: [address] [place] [phone] Director: Marry Slaughter MD José Osborn MD LABORATORY Final Resul t Performing Organization Address City/[facility] Co de Phone Number [employer] [address] [address], * AMYLASE (04/15/2024 9:20 AM EXPLOSIVES ENGINEER) AMYLASE S/P/B 55 21 - 101 U/L [facility] [employer] [facility] 04/15/2024 9:20 AM EXPLOSIVES ENGINEER 04/16/2024 4:28 AM EXPLOSIVES ENGINEER Narrative Resulting Agency Comment Performing Organization Information: Site ID: [place] [facility]: [facility] Address: [address] [place] [phone] Director: Marry Slaughter MD José Osborn MD LABORATORY Final Resul t Performing Organization Address City/[facility]/ZIP Co de Phone Number [employer] [facility] [employer] [address] [address], * TEST URINE (04/15/2024) URINE HCG TEST NEGATIVE NEGATIVE [id number], [place] Internal Control: VALID VALID [id number], [place] URINE SPECIMEN FROM URETHRA / Unknown 04/15/2024 us José Osborn MD URINE ORDERABLES Final Resu lt Performing Organization Address City/[facility]/ZIP Co de Phone Number [phone] [address], [place] [address] [address] [place] [phone], * HEP C SCANNED ORDERS (11/18/2022) 11/18/2022 [facility] Scanned SCANNING Edited Res ult - Final [facility] ON[facility] from Last 3 Months or Most Recently Relevant to Health Maintenance Insurance Advance Directives * Full Code (Latest Code Status on File) Date Activated Date Inactivated Comments 07/28/2022 2:29 PM 07/29/2022 4:14 PM Care Teams Facilities Engineer Relationship Specialty Start Date End Date Janet Alejandra APRN [id number] [place] [address] PCP - General NURSE PRACTITIONER 06/10/22
--- OUTSIDE RECORDS SUMMARY | 2024-06-03 06:33 | XMS_ITS | Clinical Summary ---
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
--- OUTSIDE RECORDS SUMMARY | 2024-06-03 06:34 | XMS_ITS | Encounter Summary ---
Author Organization [facility] Address [address] [place] [address] Care Team Providers Care New Accounts Clerk Name Role Phone Janet Alejandra APRN Primary Care Provider [phone]- [phone] Encounter Details Date Type Department Care Team (Late st Contact Info) Description 10/25/2022 [facility]Care Onsite Message Enc [facility] Medical Group Family & Internal Medicine [facility] [address] [place] [address] Janet Alejandra APRN [id number] [facility] [address] [place] [address] Test results Social History Tobacco [...] place to sleep or slept in a group home (including now)? No 07/28/2022 Comments No Sex and Gender Information Value Date Recorded Sex Assigned at Female 04/15/2024 8:39 AM NET SORTER Legal Sex Female 10:18 PM CDT Gender Identity Female 04/15/2024 8:39 AM NET SORTER Sexual Orientation Straight 04/15/2024 8: 39 AM NET SORTER Occupation Industry Job Start Date Job End [...] Rule Out 02/16/2024 02/16/2024 02/16/2024 10:09 AM NET SORTER Assessment Noted Time PHQ-9 Depression Total Score: 0 12/25/19 22 9:23 AM CDT documented as of this encounter Care Teams New Accounts Clerk Relationship Specialty Start Date End Date Janet Alejandra APRN [id number] [address] PCP - General NURSE PRACTITIONER 06/10/22 documented as of this encounter
--- OUTSIDE RECORDS SUMMARY | 2024-06-03 06:34 | XMS_ITS ---
Author Name [facility] Address [address] [place] [address] Phone Organization [facility] Address [address] [place] [address] Phone Care Team Providers Care Unit Supervisor Name Role Phone [facility] [phone] ALLERGIES, ADVERSE REACTIONS AND ALERTS Allergy Name Allergy Date Allergy Status Allergy Severity Allergy Reaction Tramadol, [RxNorm: 67716] 07/05/2023 Current Fentanyl, [RxNorm: 4337] 07/05/2023 Current [...] if ever smoked Sex:Female CARE TEAM INFORMATION Unit Supervisor Provider ID Role Location Phone [facility] [address] [place] [address]
--- OUTSIDE RECORDS SUMMARY | 2024-06-03 06:34 | XMS_ITS | Encounter Summary ---
Author Organization [facility] Address [address] [place], [place] [id number] Care Team Providers Care Router Operator Radial Name Role Phone Janet Alejandra APRN Primary Care Provider [phone] Reason for Visit * Reason Onset Date Comments Concerns 04/15/2024 Encounter Details Date Type Department Care Team (Late st Contact Info) Description 04/15/2024 [employer] Message [employer] [facility] Family & Internal Medicine [address] [address] [employer], [facility] Provider results Social History Tobacco Use Types [...] place to sleep or slept in a halfway (including now)? No 07/28/2022 Comments No Sex and Gender Information Value Date Recorded Sex Assigned at Female 04/15/2024 8:39 AM PAN PULLER Legal Sex Female 10:18 PM CDT Gender Identity Female 04/15/2024 8:39 AM PAN PULLER Sexual Orientation Straight 04/15/2024 8: 39 AM PAN PULLER Occupation Industry Job Start Date Job End [...] Dr Osborn's office visit note from yesterday. PULLER * Ghanshyam Russell - 04/16/2024 12:18 PM CST Pt calling is in a lot of pain please advise. PULLER documented in this encounter Plan of Treatment Not on file documented as of this encounter Visit Diagnoses Not on filedocumented in this encounter Additional Health Concerns Assessment Noted Time PHQ-9 Depression Total Score: 3 04/15/19 25 8:36 AM PAN PULLER documented as of this encounter Care Teams Router Operator Radial Relationship Specialty Start Date End Date Janet Alejandra APRN [id number] [facility] [address] [place] [address] PCP - General NURSE PRACTITIONER 06/10/22 documented as of this encounter
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
--- OUTSIDE RECORDS SUMMARY | 2024-06-03 06:34 | XMS_ITS ---
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 Name Role Phone Jamaal Peters Primary Care Provider REASON FOR VISIT medication increase Social History Sex Assigned At : Social History Observation Description Sex Assigned At Female Encounters Encounter Location Date Provider Diagnosis [address] [address] 05/27/2024 Jamaal Peters Plan Of Treatment No Information Progress Notes * PHOEBEDavian PLATTB:1980 (43 yo F)Acc No.[id number]:05/27/2024 Patient: Aliza JACOBSON :1980 A ge:43 Y S ex:Female Address:[facility] [address], [place], [address] Subjective: * Chief Complaints: * M edication increase * Medical History: * Surgical History: * Hospitalization/Major Diagno stic Procedure: * Medications: Objective: * Vitals: * Physical Examination: Assessment: Plan: * Treatment: * Procedure Codes: * true * Date: Generated for Printi ng/Faxing/eTransmitting on: 0 06/03/2024 06:33 AM CDT
== END 2024-06-03 06:31 | disposition home or self-care (01) ==
PROVIDERS: PCP Registered Nurse; Visit Provider Nurse Practitioner
DX: R10.13 Epigastric pain (principal); R74.8 Abnormal levels of other serum enzymes; R19.8 Other specified symptoms and signs involving the digestive system and abdomen
CPT/HCPCS: 74183; 76376; A9579